=== PATIENT | male | born 1980 | race Caucasian/White ===

== ENCOUNTER 2020-09-11 23:12 | Emergency (ER) | payer OTHER ==
[2020-09-12] MEDS ORDERED: IBUPROFEN800 MG PO (02:37)
[2020-09-12] MEDS ORDERED: CYCLOBENZAPRINE10 MG PO (02:37)
[2020-09-12] MEDS ORDERED: PERCOCET 5-3251 EACH PO (02:37)
== END 2020-09-12 02:40 | disposition home or self-care (01) ==
LOC: FER 23:12
DX: S22.32XA Fracture of one rib, left side, initial encounter for closed fracture (principal); M54.6 Pain in thoracic spine; M54.5 Low back pain; M62.830 Muscle spasm of back; Z79.899 Other long term (current) drug therapy; W00.0XXA Fall on same level due to ice and snow, initial encounter; Y92.009 Unspecified place in unspecified non-institutional (private) residence as the place of occurrence of the external cause
CPT/HCPCS: 71101; 72072; 72110